=== PATIENT | female | born 1970 | race African-American/Black ===

== ENCOUNTER 2019-08-10 12:23 | Emergency (ER) | payer MEDICAID ==
[~2019-08-10] VITALS: Ht 167.6 cm; Wt 63.0 kg
[2019-08-10 16:30] VITALS: BP 158/78
== END 2019-08-10 16:30 | disposition home or self-care (01) ==
LOC: ER 12:23
DX: H66.90 Otitis media, unspecified, unspecified ear (principal); J32.9 Chronic sinusitis, unspecified
CPT/HCPCS: 71045; 93970; 99284

== ENCOUNTER 2021-02-06 08:16 | Emergency (ER) | payer MEDICAID ==
[~2021-02-06] VITALS: Ht 167.6 cm; Wt 77.0 kg
[~2021-02-06 08:16] MED LIST: FURO-151 MT; LOSA100T32 MT; POTA20TA82 MT
[2021-02-06 08:52] LABS: HEMATOCRIT 30.5 % (36.0-48.0); HEMOGLOBIN 9.7 g/dL (12.0-16.0)
[2021-02-06 09:19] LABS: HEMATOCRIT 30.5 % (36.0-48.0); HEMOGLOBIN 9.7 g/dL (12.0-16.0); MEAN CORPUSCULAR HEMOGLOBIN 25.2 pg (28.0-32.0); MEAN CORPUSCULAR VOLUME 79.5 fL (81.0-99.0); PLATELET 367 x1000/uL (130-400); RED BLOOD CELL COUNT 3.84 mill/uL (4.2-5.4); RED CELL DISTRIBUTION WIDTH 18.5 % (11.6-14.6)
[2021-02-06 12:00] VITALS: BP 136/84
[2021-02-06] MEDS ORDERED: IBUP-2028 MT (12:06)
[2021-02-06] MEDS ORDERED: IBUPROFEN 400MG TABLET PO ONE (12:15)
== END 2021-02-06 12:33 | disposition home or self-care (01) ==
LOC: ER 08:16
DX: N93.9 Abnormal uterine and vaginal bleeding, unspecified (principal); N93.8 Other specified abnormal uterine and vaginal bleeding; I10 Essential (primary) hypertension; Z98.51 Tubal ligation status; Z98.890 Other specified postprocedural states
CPT/HCPCS: 36415; 85014; 85018; 85027; 93005; 99284; Z7610

== ENCOUNTER 2021-04-09 05:46 | Emergency (ER) | payer MEDICAID ==
[~2021-04-09] VITALS: Ht 167.6 cm; Wt 75.0 kg
[~2021-04-09 05:46] MED LIST changes: +IBUP-2028 MT
[2021-04-09] MEDS ORDERED: CETI10CA2 PO (06:39)
[2021-04-09] MEDS ORDERED: FLUT9.9S BOTHNSTRLS (06:39)
[2021-04-09 06:55] VITALS: BP 152/88
== END 2021-04-09 06:56 | disposition home or self-care (01) ==
LOC: ER 05:46
DX: R09.81 Nasal congestion (principal); I10 Essential (primary) hypertension; F14.10 Cocaine abuse, uncomplicated; F15.10 Other stimulant abuse, uncomplicated; Z79.899 Other long term (current) drug therapy
CPT/HCPCS: 99281; 99283

== ENCOUNTER 2021-04-13 12:29 | Emergency (ER) | payer MEDICAID ==
[~2021-04-13] VITALS: Ht 167.6 cm; Wt 76.0 kg
[~2021-04-13 12:29] MED LIST changes: +CETI10CA2 PO; +FLUT9.9S BOTHNSTRLS
[2021-04-13] MEDS ORDERED: ACETAMINOPHEN 325MG TABLET PO STA (13:29)
[2021-04-13 14:21] LABS: BASOPHILS % 0.9 % (0.0-2.0); EOSINOPHILS % 6.1 % (0.0-5.0); HEMATOCRIT. 37.3 % (36.0-48.0); HEMOGLOBIN. 12.3 g/dL (12.0-16.0); LYMPHOCYTES % 35.8 % (20.0-50.0); MEAN CORPUSCULAR HEMOGLOBIN 26.3 pg (28.0-32.0); MEAN CORPUSCULAR VOLUME 79.6 fL (81.0-99.0); MEAN PLATELET VOLUME 8.4 fl (7.4-10.4); MONOCYTES % 4.3 % (2.0-8.0); NEUTROPHILS % 52.9 % (40.0-76.0); PLATELET 248 x1000/uL (130-400); RED BLOOD CELL COUNT 4.69 mill/uL (4.2-5.4); RED CELL DISTRIBUTION WIDTH 19.9 % (11.6-14.6)
[2021-04-13 14:29] LABS: CHLORIDE 108 mEq/L (98-107)
[2021-04-13 17:16] LABS: CLARITY URINE CLEAR (CLEAR); COLOR URINE YELLOW (YELLOW); KETONES URINE NEGATIVE (NEGATIVE); LEUKOCYTE ESTERASE URINE NEGATIVE (NEGATIVE); NITRITE URINE NEGATIVE (NEGATIVE); OCCULT BLOOD URINE NEGATIVE (NEGATIVE); PH URINE 6.5 (4.5-8.0); PROTEIN URINE NEGATIVE (NEGATIVE); SPECIFIC GRAVITY URINE 1.025 (1.005-1.030); UROBILINOGEN URINE 0.2 E.U./dL (0.2-1.0)
[2021-04-13 17:45] VITALS: BP 146/72
== END 2021-04-13 17:47 | disposition home or self-care (01) ==
LOC: ER 14:03
DX: B34.9 Viral infection, unspecified (principal); R60.0 Localized edema; I10 Essential (primary) hypertension; F14.10 Cocaine abuse, uncomplicated; F15.10 Other stimulant abuse, uncomplicated
CPT/HCPCS: 36415; 80053; 81003; 83880; 84484; 85025; 93005; 99285